=== PATIENT | female | born 1995 | race Caucasian/White ===

== ENCOUNTER 2020-12-17 20:59 | Observation (INO) | payer BC, MEDICAID, SELFPAY ==
[2020-12-17 21:16] VITALS: BP 147/82; PULSE 104
[2020-12-17 21:31] VITALS: BP 137/85; PULSE 98
[2020-12-17 21:46] VITALS: BP 129/68; PULSE 95; BMI 27.4
--- NOTE | 2020-12-17 21:47 | LDADM ---
This patient, Cristina Lerma, was admitted to [facility] on 12/17/20 at 20:59. Plans for labor, pain management and were discussed with patient. Patient/family oriented to hospital policies and general routines including ID bracelet, bed and alarms, visiting hours, pain management, procedures, bathroom and other care routines, personal items, smoking policy, room service/diet and guest tray routines, security routines, and visiting hours. Patient/Family are encouraged to report perceived risks to care and to ask questions if they do not understand what they are told or what they should do. See OBIX for further documentation.
[2020-12-17 22:01] VITALS: BP 128/67; PULSE 89
--- NOTE | 2020-12-22 07:22 | PM.OBTRLD ---
OB - Triage/Final Diagnosis Visit Information Date of evaluation: 12/17/20 Reason for evaluation: other (bleeding) Comments/Additional reasons for admission: I have assessed the risk for this patient, Cristina Francine Smithleif, and determined that she would benefit from observation care.
== END 2020-12-17 22:09 | disposition home or self-care (01) ==
PROVIDERS: Admitting Provider Student in an Organized Health Care Education/Training Program; Visit Provider Student in an Organized Health Care Education/Training Program
DX: O26.859 Spotting complicating pregnancy, unspecified trimester (principal); Z3A.00 Weeks of gestation of pregnancy not specified
CPT/HCPCS: 84112; G0378; G0379

== ENCOUNTER 2021-01-24 04:50 | Inpatient (IN) | payer BC, MEDICAID, SELFPAY ==
[2021-01-24] VITALS (189 sets, daily range): BP systolic 64–167; BP diastolic 49–123; PULSE 71–173; RESP 16; TEMP 36.5–37.5; O2SAT 92–100; BMI 28.5
--- NOTE | 2021-01-24 04:50 | LDADM ---
This patient, Cristina Lerma, was admitted to Labor/Delivery/Recovery 103 on 01/24/21 at 04:50. Plans for labor, pain management and were discussed with patient. Patient/family oriented to hospital policies and general routines including ID bracelet, bed and alarms, visiting hours, pain management, procedures, bathroom and other care routines, personal items, smoking policy, room service/diet and guest tray routines, infant security routines, and visiting hours. Patient/Family are encouraged to report perceived risks to care and to ask questions if they do not understand what they are told or what they should do. See OBIX for further documentation.
[2021-01-24 05:33] LABS: Basophils Absolute Auto 0.1 K/mm3 (0.0-0.1); Basophils Percent Auto 0.6 % (0.2-1.2); Eosinophils Absolute Auto 0.2 K/mm3 (0-0.3); Eosinophils Percent Auto 1.3 % (0-4.4); Hematocrit 33.7 % (37.0-47.0); Hemoglobin 11.5 g/dL (12.0-15.0); Immature Granulocyte Absolute 0.14 K/mm3 (0.00-0.031); Immature Granulocyte Percent A 1.1 % (0-0.5); Lymphocytes Absolute Auto 3.01 K/mm3 (0.9-3.2); Lymphocytes Percent Auto 22.6 % (18.3-44.2); Mean Corpuscular HGB Conc 34.1 g/dl (32-36); Mean Corpuscular Hemoglobin 29.5 pg (26-34); Mean Corpuscular Volume 86.4 fl (80-100); Mean Platelet Volume 8.4 fl (7.4-10.4); Monocytes Absolute Auto 1.3 K/mm3 (0.1-0.6); Monocytes Percent Auto 9.7 % (2.6-8.5); Neutrophils Absolute Auto 8.6 K/mm3 (1.3-6.7); Neutrophils Percent Auto 64.7 % (45.5-73.1); Platelet Count Result 390 k/mm3 (150-375); White Blood Count 13.3 K/mm3 (4.5-10.0)
[2021-01-24] MEDS: LACTATED RINGERS 1,000 ML 125 ML IV CONT ×3 (05:34→16:10)
[2021-01-24] MEDS: AMPICILLIN 2 GM/NS 100 ML 2 GM/100 ML BAG IVPB (05:35)
[2021-01-24] MEDS: OXYTOCIN 30 UNITS/NS 500 ML 30 UNITS/500 ML BAG 6 UNITS IV CONT (05:49)
--- NOTE | 2021-01-24 06:06 | PM.IMHP ---
H&P: HPI History of Present Illness Date/Time: 01/24/21 06:06 25-year-old 1 para 0 whose last menstrual period was 04/24/2020, whose EDC is 01/29/2021, confirmed by 12 week ultrasound presents at 39 and half weeks gestation for medical induction of labor. She is negative for group B strep. Her has been uncomplicated. Risks and benefits of induction reviewed. Chief Complaint: induction of labor Review of Systems Review of Systems: All systems reviewed & are unremarkable except as noted in HPI and below PMFSH Family History Family History Father Crohn's disease Social History Social History Smoking status: Never smoker Substance use: never Spiritual care concerns: No Meds Home Medications and Allergies Home Medications Medication Instructions Recorded Confirmed Type prenat.vits,yumiko,fzz-bssh-dpujs 1 tablet PO DAILY 01/01/21 01/01/21 History [ #2] Allergies Allergy/AdvReac Type Severity Reaction Status Date / Time No Known Allergies Allergy Verified 01/01/21 11:59 Vital Signs Vital Signs - 24 hr 01/24/21 05:20 01/24/21 05:30 01/24/21 05:34 Temperature 99.4 F Pulse Rate 108 H 99 Blood Pressure 139/86 140/87 01/24/21 05:45 01/24/21 06:00 Temperature Pulse Rate 98 94 Blood Pressure 151/88 H 136/78 Exam Const: General: no acute distress Eyes: General: appearance normal, both eyes and all related structures Neck: Neck: supple and no JVD Thyroid: thyroid normal Resp: Effort & Inspection: normal respiratory effort Auscultation: clear to auscultation bilaterally Cardio: Rate: regular rate Rhythm: regular rhythm GI: Inspection: non-distended GI Palp: Yes Soft to palpation, No Tenderness to palpation present (GI) and No Guarding due to palpation present (GI) Auscultation: normal bowel sounds : General: Yes bladder normal to inspection Speculum Exam - Vagina: normal appearance of the vagina Speculum Exam - Cervix: Cervical os open ( Cervix 3/80/1. AROM clear. FHTs reassuring) Skin: General skin exam: no rashes or lesions noted Extrem: General: normal to inspection and no edema Psych: Mental Status: mental status grossly normal Affect: normal affect H&P: Results Labs Labs: Short CBC 01/24/21 Range/Units 05:16 WBC 13.3 H (4.5-10.0) K/mm3 Hgb 11.5 L (12.0-15.0) g/dL Hct 33.7 L (37.0-47.0) % Plt Count 390 H (150-375) k/mm3 Assessment and Plan Additional Plan impression: Term with favorable cervix Plan: Spontaneous vaginal delivery is expected. She has an epidural candidate
--- NOTE | 2021-01-24 06:10 | WPDANESEPP ---
Anes - Eval Pre Procedure Procedure: labor epidural Date/Time: 01/24/21 06:10 Surgeon: bo montelongo Pre Op Diagnosis: IOL Patient Data Age: 25 Gender: F Height: 1.73 m Weight: 85 kg Last Vital Signs Temp 37.4 C 01/24/21 05:34 Pulse 94 01/24/21 06:00 BP 136/78 01/24/21 06:00 Allergies Allergy/AdvReac Type Severity Reaction Status Date / Time No Known Allergies Allergy Verified 01/01/21 11:59 Home Medications Medication Instructions Recorded Confirmed Type prenat.vits,yumiko,aee-evhz-tlljo 1 tablet PO DAILY 01/01/21 01/01/21 History [ #2] Laboratory Tests 01/24/21 01/24/21 05:16 05:16 WBC 13.3 K/mm3 H K/mm3 (4.5-10.0) RBC 3.90 M/mm3 L M/mm3 (4.2-5.4) Hgb 11.5 g/dL L g/dL (12.0-15.0) Hct 33.7 % L % (37.0-47.0) MCV 86.4 fl fl (80-100) MCH 29.5 pg pg (26-34) MCHC 34.1 g/dl g/dl (32-36) RDW 13.0 % % (11.5-14.5) Plt Count 390 k/mm3 H k/mm3 (150-375) MPV 8.4 fl fl (7.4-10.4) Immature Gran % (Auto) 1.1 % H % (0-0.5) Neut % (Auto) 64.7 % % (45.5-73.1) Lymph % (Auto) 22.6 % % (18.3-44.2) [place] % (Auto) 9.7 % H % (2.6-8.5) Eos % (Auto) 1.3 % % (0-4.4) Baso % (Auto) 0.6 % % (0.2-1.2) Lymph # (Auto) 3.01 K/mm3 K/mm3 (0.9-3.2) [place] # (Auto) 1.3 K/mm3 H K/mm3 (0.1-0.6) Eos # (Auto) 0.2 K/mm3 K/mm3 (0-0.3) Baso # (Auto) 0.1 K/mm3 K/mm3 (0.0-0.1) Abs Immat Gran (auto) 0.14 K/mm3 H K/mm3 (0.00-0.031) Absolute Neuts (auto) 8.6 K/mm3 H K/mm3 (1.3-6.7) Absolute Nucleated RBC 0.0 K/mm3 K/mm3 (0.0-0.012) Nucleated RBC % 0.0 % % (0.0-0.2) RPR Pending Patient hx anesthesia problems: none Family hx anesthesia problems: none PMFSH Family History Family History Father Crohn's disease Social History Social History Smoking status: Never smoker Substance use: never Spiritual care concerns: No Exam Day of Procedure 01/24/21 06:10
[2021-01-24 07:03] LABS: Rapid Plasma Reagin Non-Reactive (NonReactive)
[2021-01-24] MEDS: AMPICILLIN 1 GM/NS 50 ML 1 GM/50 ML BAG IVPB ×2 (10:06→14:38)
--- NOTE | 2021-01-24 11:48 | P.PNOB_ITS ---
OB - PN: Subj Subjective Date/time seen: 01/24/21 11:48 cx 4.5 by rn exam fhts ok OB - PN: Obj Data Labs CBC & Chem 7: 01/24/21 05:16 Labs: Laboratory Results - last 24 hr 01/24/21 01/24/21 01/24/21 05:16 05:16 05:16 WBC 13.3 H RBC 3.90 L Hgb 11.5 L Hct 33.7 L MCV 86.4 MCH 29.5 MCHC 34.1 RDW 13.0 Plt Count 390 H MPV 8.4 Immature Gran % (Auto) 1.1 H Neut % (Auto) 64.7 Lymph % (Auto) 22.6 [place] % (Auto) 9.7 H Eos % (Auto) 1.3 Baso % (Auto) 0.6 Lymph # (Auto) 3.01 [place] # (Auto) 1.3 H Eos # (Auto) 0.2 Baso # (Auto) 0.1 Abs Immat Gran (auto) 0.14 H Absolute Neuts (auto) 8.6 H Absolute Nucleated RBC 0.0 Nucleated RBC % 0.0 RPR Non-reactive Blood Type O Positive Antibody Screen Negative OB - PN A/P Time Spent With Patient Time: Total time spent is greater than 50% in coordination of care (as documented) at patient's floor/unit and/or counseling patient:
--- NOTE | 2021-01-24 16:53 | PM.OBPRVD ---
OB - Delivery Note Procedure Delivery date: 01/24/21 Procedure: mil Intrapartal events: None Induction method: AROM Delivery augmentation: pitocin Delivery monitor: external FHT Route of delivery: Episiotomy description: None Laceration Description: None Specimen: No Quantitative Blood Loss (ml): 58 Anesthesia type: Epidural Disposition: floor Baby Date of : 01/24/21 Time of : 16:45 Weeks of gestation at delivery: 39 gender: Female presentation: vertex position: Right Occiput Anterior Placenta delivery description: Spontaneous cord vessel description: 3 Vessels and Nuchal Cord score one minute: 8 score five minutes: 9
[2021-01-24] MEDS: OXYTOCIN 30 UNITS/NS 500 ML 30 UNITS/500 ML BAG 125 UNITS IV CONT (17:18)
[2021-01-24] MEDS: IBUPROFEN 600 MG TABLET PO (19:15)
[2021-01-24] MEDS: BENZOCAINE 20% AER SPR (*SP) 56 GM CAN 1 SPRAY TOPICAL (19:28)
[2021-01-24] MEDS: WITCH HAZEL 40 PADS 1 PAD TOPICAL (19:28)
--- NOTE | 2021-01-24 20:00 | OBPPTRN ---
Patient transferred to post room #281 via wheelchair. Support person present. Oriented to unit, room, information board, rooming in, admission packet and security measures. Patient verbalizes understanding. with patient.
[2021-01-25 04:15] VITALS: BP 107/48; PULSE 87; RESP 16; TEMP 36.6; O2SAT 100
[2021-01-25] MEDS: IBUPROFEN 600 MG TABLET PO ×2 (04:26→15:42)
[2021-01-25 04:34] LABS: Hematocrit 28.9 % (37.0-47.0); Hemoglobin 9.8 g/dL (12.0-15.0)
--- NOTE | 2021-01-25 06:22 | PM.OBPNVD ---
OB - PN: Subj Subjective Date/time seen: 01/25/21 06:22 Patient comments: no complaints and pain well controlled baby status: doing well OB - PN: Obj Data Labs CBC & Chem 7: 01/25/21 04:05 Labs: Laboratory Results - last 24 hr 01/24/21 01/24/21 01/25/21 05:16 05:16 04:05 Hgb 9.8 L Hct 28.9 L RPR Non-reactive Blood Type O Positive Antibody Screen Negative OB - PN A/P Plan day: 1 Plan: routine care Time Spent With Patient Time: Total time spent is greater than 50% in coordination of care (as documented) at patient's floor/unit and/or counseling patient: Time with patient: less than 15 minutes Review of Systems Review of Systems: All systems reviewed & are unremarkable except as noted in HPI and below Exam Const: General: no acute distress Eyes: General: appearance normal, both eyes and all related structures Neck: Neck: supple and no JVD Thyroid: thyroid normal Resp: Effort & Inspection: normal respiratory effort Auscultation: clear to auscultation bilaterally Cardio: Rate: regular rate Rhythm: regular rhythm GI: Inspection: non-distended GI Palp: Yes Soft to palpation, No Tenderness to palpation present (GI) and No Guarding due to palpation present (GI) Auscultation: normal bowel sounds : General: Yes bladder normal to palpation External Female Exam: normal external appearance Speculum Exam - Vagina: normal vaginal discharge and No vaginal bleeding Speculum Exam - Cervix: nontender Bimanual exam- vagina & uterus: bladder normal to palpation and No Cervical tenderness present OB/external & speculum: No vaginal bleeding Skin: General skin exam: no rashes or lesions noted Extrem: General: normal to inspection and no edema Psych: Mental Status: mental status grossly normal Affect: normal affect
[2021-01-25] MEDS: POLYSACCHARIDE IRON COMPLEX 150 MG CAPSULE PO ×2 (07:18→15:41)
[2021-01-25] MEDS: MULTIVIT/MIN/PREN/FOL AC/IRON TABLET 1 TAB PO (07:18)
[2021-01-25] MEDS: DOCUSATE SODIUM 100 MG CAPSULE PO ×2 (07:18→15:42)
[2021-01-25 07:40] VITALS: BP 111/59; PULSE 85; RESP 16; TEMP 36.6; O2SAT 97
--- NOTE | 2021-01-25 09:20 | PC.NURSE ---
Consult with pt., mother reports she has mostly bottle fed due to infant not latching. Mother states she wishes to breastfeed. Requested mother call out next feeding to assist with latching.
[2021-01-25 13:07] VITALS: BP 122/76; PULSE 79; RESP 18; TEMP 37.1; O2SAT 100
--- NOTE | 2021-01-25 14:42 | WPDANLDPN2 ---
Anes-Prog Note L&D Date/Time: 01/25/21 14:42 Comfortable throughout: labor (one side only,pt indicated that she told the nurse she was hurting nut was told that was normal. Anesthesia was not consulted per pt report) and delivery Neuraxial method: epidural Epidural/Spinal procedure site: clean & non-tender Neuro status: Neuro function grossly intact. Cardiovascular status: normal Respiratory status: normal Airway patency: baseline Mental status: baseline Post-Op hydration status: normal Vital Signs: Last Vital Signs Temp 98.8 F 01/25/21 13:07 Pulse 79 01/25/21 13:07 Resp 18 01/25/21 13:07 BP 122/76 01/25/21 13:07 Pulse Ox 100 01/25/21 13:07 Pain score (VAS): 0/10 I/O: Intake & Output 01/24/21 01/25/21 01/25/21 23:59 07:59 15:59 Intake Total 1500 Output Total 62 Balance 1438 Post-procedural complaints: none Patient feedback: Patient satisfied with anesthetic care.
--- NOTE | 2021-01-25 15:15 | PC.NURSE ---
Mother called out for questions with . Mother has stated she was unsure if she wished to breastfeed and had questions concerning supply. Mother is concerned infant is getting enough with just . Reviewed adequate signs of breastmilk intake. Mother questions if she can breast and bottle feed. Reviewed milk supply and stimulation of supply and keeping supply up. Offered assist with latching earlier this day. Mother has chosen to bottle feed. Mother wishes to attempt to breast. Demonstrated stimulation techniques to wake for feeding. Assisted with infant to breast. Reviewed positioning/alignment in cross cradle, holding breast in U hold and guided asymmetrical latch on. Infant was able to latch within a few attempts. nursed eagerly, with steady draws and frequent swallowing noted for bursts followed with long pausing. Reviewed signs of a correct latch, effective nursing and suck swallow ratio. Infant was able to maintain latch. Mother reported slight tenderness at times, had slipped to shallow latch. Demonstrated how to adjust latch more deeply while feeding. Mother quickly reports she can feel is latched more deeply and has minimal tenderness. Suggested to stimulate infant while feeding to keep awake and nursing effectively for increased stimulation and increased intake. Instructed mother to call out for RN assistance if she wishes to put infant to breast each feeding, assist is available for every feeding until she is comfortable with latch. Suggested if mother thinks she may want to breastfeed, suggested she breastfeed then supplement if she feels infant is not satisfied.
[2021-01-25 15:42] VITALS: BP 140/69; PULSE 77; RESP 16; TEMP 36.6; O2SAT 98
[2021-01-25 20:00] VITALS: BP 122/80; PULSE 78; RESP 16; TEMP 36.4; O2SAT 99
[2021-01-25] MEDS: ACETAMINOPHEN 325 MG TABLET 650 MG PO (20:48)
[2021-01-26] MEDS: IBUPROFEN 600 MG TABLET PO (02:23)
--- NOTE | 2021-01-26 06:28 | PM.DS ---
DS: Admitting Diagnosis Admitting Diagnosis Admitting Diagnosis: term iup DS: Summary Hospital Course Hospital Course: The patient was admitted for medical induction of labor. She underwent spontaneous vaginal delivery which was unremarkable. Her hospital course was unremarkable. She remained afebrile, was eating, ambulating, breast-feeding, and generally without complaints Time Spent with Patient Time attestation: Total time spent providing and/or coordinating discharge services: Exam Const: General: no acute distress Eyes: General: appearance normal, both eyes and all related structures Neck: Neck: supple and no JVD Thyroid: thyroid normal Resp: Effort & Inspection: normal respiratory effort Auscultation: clear to auscultation bilaterally Cardio: Rate: regular rate Rhythm: regular rhythm GI: Inspection: non-distended GI Palp: Yes Soft to palpation, No Tenderness to palpation present (GI) and No Guarding due to palpation present (GI) Auscultation: normal bowel sounds : General: Yes bladder normal to palpation External Female Exam: normal external appearance Speculum Exam - Vagina: normal vaginal discharge and No vaginal bleeding Speculum Exam - Cervix: nontender Bimanual exam- vagina & uterus: bladder normal to palpation and No Cervical tenderness present OB/external & speculum: No vaginal bleeding Skin: General skin exam: no rashes or lesions noted Extrem: General: normal to inspection and no edema Psych: Mental Status: mental status grossly normal Affect: normal affect Discharge Plan Discharge Attending physician on discharge: Hernan Sauceda Consulting providers: Miugel A Reed Discharging Clinician: Hernan Sauceda Patient Disposition: Home, Self-Care Activity: pelvic rest Diet: heart healthy Patient Instructions: Antibiotic Form Stand Alone Forms: General Discharge Information Follow-up/Referrals: Hernan Sauceda MD [Physician] - Discharge Medications: No Action #2 Tablet 1 tablet PO DAILY RF: 0 Date of admission: 01/24/21 04:50 Primary Care Provider: PHYSICIAN,RETURN AGENT [employer]PORT Admitting Provider: Hernan Sauceda Attending physician on admission: eHrnan Sauceda Condition: Stable
--- NOTE | 2021-01-26 06:30 | PM.OBPNVD ---
OB - PN: Subj Subjective Date/time seen: 01/26/21 06:30 Patient comments: no complaints and pain well controlled baby status: doing well OB - PN: Obj Data Labs CBC & Chem 7: 01/25/21 04:05 OB - PN A/P Plan day: 2 Plan: routine care, discharge home and follow up 6 weeks Time Spent With Patient Time: Total time spent is greater than 50% in coordination of care (as documented) at patient's floor/unit and/or counseling patient: Time with patient: less than 15 minutes Review of Systems Review of Systems: All systems reviewed & are unremarkable except as noted in HPI and below Exam Const: General: no acute distress Eyes: General: appearance normal, both eyes and all related structures Neck: Neck: supple and no JVD Thyroid: thyroid normal Resp: Effort & Inspection: normal respiratory effort Auscultation: clear to auscultation bilaterally Cardio: Rate: regular rate Rhythm: regular rhythm GI: Inspection: non-distended GI Palp: Yes Soft to palpation, No Tenderness to palpation present (GI) and No Guarding due to palpation present (GI) Auscultation: normal bowel sounds : General: Yes bladder normal to palpation External Female Exam: normal external appearance Speculum Exam - Vagina: normal vaginal discharge and No vaginal bleeding Speculum Exam - Cervix: nontender Bimanual exam- vagina & uterus: bladder normal to palpation and No Cervical tenderness present OB/external & speculum: No vaginal bleeding Skin: General skin exam: no rashes or lesions noted Extrem: General: normal to inspection and no edema Psych: Mental Status: mental status grossly normal Affect: normal affect
--- NOTE | 2021-01-26 08:40 | PC.NURSE ---
Consult with pt., mother states she has decided to formula feed. Reviewed engorgement/relief for bottle feeding.
[2021-01-26 08:50] VITALS: BP 128/69; PULSE 84; RESP 18; TEMP 37.2; O2SAT 98
[2021-01-26 09:30] VITALS: PULSE 84; RESP 18; O2SAT 98
[2021-01-26] MEDS: ACETAMINOPHEN 325 MG TABLET 650 MG PO (10:03)
[2021-01-26] MEDS: POLYSACCHARIDE IRON COMPLEX 150 MG CAPSULE PO (10:03)
[2021-01-26] MEDS: DOCUSATE SODIUM 100 MG CAPSULE PO (10:03)
[2021-01-26] MEDS: MEASLES,MUMPS,RUBELLA VACCINE 0.5 ML VIAL SUB-Q (10:31)
[2021-01-27 11:12] VITALS: BP 130/69; PULSE 99; RESP 20; TEMP 36.8; O2SAT 100
== END 2021-01-26 11:28 | disposition home or self-care (01) | DRG 807 ==
LOC: ANHLDR 04:54 → ANHOB2 21:36
PROVIDERS: Admitting Provider Obstetrics & Gynecology; Visit Provider Obstetrics & Gynecology
DX: O99.824 Streptococcus B carrier state complicating childbirth (principal); Z37.0 Single live birth; Z3A.39 39 weeks gestation of pregnancy; O69.81X0 Labor and delivery complicated by cord around neck, without compression, not applicable or unspecified
CPT/HCPCS: 36415; 85014; 85018; 85025; 86592; 86850; 86900; 86901; 90710; A9270; J0290; J2590; J2795; J7120